=== PATIENT | female | born 1975 | race Caucasian/White ===

== ENCOUNTER 2023-04-25 10:18 | Outpatient (CLI) | payer MEDICAID, SELFPAY | END 2023-04-25 10:19 | disposition home or self-care (01) | PROVIDERS: PCP Family Medicine; Visit Provider Family Medicine | DX: Z00.00 Encounter for general adult medical examination without abnormal findings (principal); E78.5 Hyperlipidemia, unspecified; I10 Essential (primary) hypertension | CPT/HCPCS: 80048; 80061 ==

== ENCOUNTER 2024-01-29 14:14 | Outpatient (CLI) | payer MEDICAID, SELFPAY ==
--- OUTSIDE RECORDS SUMMARY | 2024-01-29 14:17 | XMS_ITS | Clinical Summary ---
Author Organization [facility] Address [address], [place] [address] Care Team Providers Care Circuit Board Drafter Name Role Phone Unavailable Primary Care Provider Unavailabl e Source Comments You are receiving this document as you are listed as the primary care provider,follow-up provider, or the patient has been referred to you for consultation.This is in compliance with the Medicare andMedicaid EHR Incentive Program,which states Providers who transition their patient to another setting of careor provider of care or refers their patient to another provider of care shouldprovide summary care record for each transition of care or referral. [facility] Allergies Active Allergy Reactions Criticality Noted Date Comments Erythromycin Nausea And Vomiting 11/17/2005 Medications Medication Sig Dispensed Refills Start Date End Date Status VENTOLIN HFA 108 (90 Base) MCG/ACT inhaler Inhale. 11/20/2022 Act goldie amLODIPine (NORVASC) 2.5 MG tablet Take 1 Tablet (2.5 mg) by mouth daily. 08/11/2022 Active amLODIPine (NORVASC) 10 MG tablet Take 1 Tablet (10 mg) by mouth daily. 11/20/2022 Active atorvastatin (LIPITOR) 20 MG tablet Take 1 Tablet (20 mg) by mouth daily. 11/23/2022 Active BELBUCA 150 MCG buccal film two times a day. 11/21/2022 Active diclofenac (VOLTAREN) 1 % gel SMARTSIG:Topical 11/21/2022 Active HYDROcodone-acetaminop hen (NORCO) 5-325 MG tablet Take by mouth. 12/02/2022 Active metoprolol succinate (TOPROL XL) 50 MG 24 hour release tablet Take 1 Tablet (50 mg) by mouth daily. 08/02/2022 Active pregabalin (LYRICA) 225 MG capsule Take 1 Capsule (225 mg) by mouth daily. 11/20/2022 Active tiZANidine (ZANAFLEX) 4 MG tablet Take 1 Tablet (4 mg) by mouth daily at bedtime. 11/21/2022 Active venlafaxine (EFFEXORXR) 75 MG 24 hour release capsule Take 1 Capsule (75 mg) by mouth daily. 10/03/2022 Active Social History Tobacco Use Types Packs/Day Years Used Date Smoking Tobacco: Never Assessed Sex and Gender Information Value Date Recorded Sex Assigned at Not on file Gender Identity Not on file Sexual Orientation Not on file Last Filed Vital Signs Vital Sign Reading Time Taken Comments Blood Pressure - - Pulse - - Temperature 36.6 ??C (97.8 ??F) 12/19/2022 2:32 PM CD T Respiratory Rate - - Oxygen Saturation - - Inhaled Oxygen Concentration - - Weight 95.3 kg (210 lb) 12/15/2022 3:33 PM CDT Height 162.6 cm (5' 4) 12/15/2022 3:33 PM CDT Body Mass Index 36.05 12/15/2022 3:33 PM CDT Plan of Treatment Health Maintenance Due Date Last Done Comments Cervical Cancer Screening Due 1974 Colon Cancer Screening Plan Due 1974 Hep C Screening (Preventive Services) 1974 HIV Screening (Preventive Services) 1990 Adult Preventive Visit 1992 HepB (1) 1993 Cholesterol 2019 DTaP/Tdap/Td (2 - Tdap) 01/03/2023 01/04/20 13, 11/22/1999 COVID-19 Vaccine ( - 2022-2 4 season) 2023 Zoster/Shingles (1 of 2) 2024 Influenza (Season Ended) 2024 HepA Aged Out No longer eligi ble based on patient's age to complete this topic Hib Aged Out No longer eligi ble based on patient's age to complete this topic IPV (Polio) Aged Out No longer eligi ble based on patient's age to complete this topic MCV4 Aged Out No longer eligi ble based on patient's age to complete this topic Pneumococcal Aged Out No longer eligi ble based on patient's age to complete this topic
--- OUTSIDE RECORDS SUMMARY | 2024-01-29 14:18 | XMS_ITS | Clinical Summary ---
Author Organization [facility] Address [address] [place] [address] Care Team Providers Care Occupational Hygienist Name Role Phone Ladarius Benjamin MD Primary Care Provider Allergies No known active allergies Medications Medication Sig Dispensed Refills Start Date End Date Status pregabalin (LYRICA) 50 MG capsule Take 50 mg by mouth 07/28/2016 Active guaiFENesin-codeine (ROBITUSSIN AC) 100-10 MG/5ML SOLN solutionIndications: Influenza A Take 5 mLs by mouth every 4 hours as needed for cough 120 mL 0 08/26/2016 Active oxyCODONE (ROXICODONE) 5 MG tablet Take 1-2 tablets (5-10 mg) by mouth every 6 hours as needed for moderate to severe pain 12 tablet 11/18/2020 Active Social History Tobacco Use Types Packs/Day Years Used Date Smoking Tobacco: Every Day Cigarettes Smokeless Tobacco: Never Alcohol Use Standard Drinks/Week Comments Not Asked 0 (1 standard drink = 0.6 oz pur e alcohol) Adolescent Education Answer Date Record ed Getting School Help Needed Not on file 05/13 Sex and Gender Information Value Date Recorded Sex Assigned at Not on file Gender Identity Not on file Sexual Orientation Not on file Last Filed Vital Signs Vital Sign Reading Time Taken Comments Blood Pressure 165/105 11/18/2020 8:45 PM CDT Pulse 67 11/18/2020 8:45 PM CDT Temperature 36.9 ??C (98.4 ??F) 11/18/2020 2:51 PM CD T Respiratory Rate 20 11/18/2020 8:45 PM CDT Oxygen Saturation 100% 11/18/2020 8:45 PM CDT Inhaled Oxygen Concentration - - Weight 92.5 kg (204 lb) 11/18/2020 2:51 PM CDT Height 165.1 cm (5' 5) 08/26/2016 8:39 AM 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
--- OUTSIDE RECORDS SUMMARY | 2024-01-29 14:18 | XMS_ITS | Referral Summary ---
Author Organization [facility] Address [address] [place] [id number] Care Team Providers Care Tariff Compiler Name Role Phone Ladarius Benjamin MD Primary Care Provider [phone] Allergies No known active allergies Medications Medication [...] 165.1 cm (5' 5) 08/26/2016 8:39 AM [employer] Body Mass Index 33.95 08/26/2016 8:39 AM [employer] Plan of Treatment Not on file Care Teams Tariff Compiler Relationship Specialty Start Date End Date Ladarius Benjamin MD PCP - General Family Medicine 11/18/20
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
--- OUTSIDE RECORDS SUMMARY | 2024-01-29 14:18 | XMS_ITS | Clinical Summary ---
Author Organization [facility] Address [address] [address] Phone Care Team Providers Care Kitchen Work Supervisor Name Role Phone Unavailable Primary Care Provider Unavailabl e Allergies No known active allergies Medications Medication Sig Dispensed Refills Start Date End Date Status acetaminophen (TYLENOL) 325 MG tablet Take 650 mg by mouth every six hours as needed for Pain. Limit acetaminophen to 4000 mg per day from all sources. Active AMITRIPTYLINE HCL OR Take by mouth. Active HYDROcodone-acetami nophen (NORCO) 5-325 MG oral tablet Take 1 Tab by mouth every six hours as needed for Pain for up to 10 doses. Acetaminophen should be limited to 4000 mg per day. 10 Tab 12/12/2017 Active Active Problems Problem Noted Date Diagnosed Date Adult acne 07/28/2016 Tobacco dependence 07/28/2016 Heart murmur 05/17/2010 Social History Tobacco Use Types Packs/Day Years Used Date Smoking Tobacco: Never Assessed Sex and Gender Information Value Date Recorded Sex Assigned at Not on file Gender Identity Not on file Sexual Orientation Not on file Last Filed Vital Signs Vital Sign Reading Time Taken Comments Blood Pressure 148/98 12/12/2017 2:17 PM CDT Pulse 60 12/12/2017 2:17 PM CDT Temperature 36.8 ??C (98.2 ??F) 12/12/2017 2:17 PM CD T Respiratory Rate 20 12/12/2017 2:17 PM CDT Oxygen Saturation 99% 12/12/2017 2:17 PM CDT Inhaled Oxygen Concentration - - Weight 81.6 kg (180 lb) 12/12/2017 2:17 PM CDT Height 165.1 cm (5' 5) 12/12/2017 2:17 PM CDT Body Mass Index 29.95 12/12/2017 2:17 PM CDT Plan of Treatment Not on file
== END 2024-01-29 14:15 | disposition home or self-care (01) ==
PROVIDERS: PCP Family Medicine; Visit Provider Family Medicine
DX: I10 Essential (primary) hypertension (principal); R53.83 Other fatigue; Z13.29 Encounter for screening for other suspected endocrine disorder
CPT/HCPCS: 80048; 84443

== ENCOUNTER 2024-10-22 09:01 | Outpatient (CLI) | payer MEDICAID, SELFPAY | END 2024-10-22 09:02 | disposition home or self-care (01) | PROVIDERS: PCP Family Medicine; Visit Provider Family Medicine | DX: I10 Essential (primary) hypertension (principal); E78.00 Pure hypercholesterolemia, unspecified; Z13.0 Encounter for screening for diseases of the blood and blood-forming organs and certain disorders involving the immune mechanism | CPT/HCPCS: 80048; 80061 ==

== ENCOUNTER 2025-02-10 10:05 | Outpatient (CLI) | payer MEDICAID, SELFPAY ==
--- NOTE | 2025-02-10 10:15 | CRLHL7_ITS ---
For Patients: As a result of the Century Cures Act, medical imaging exams and procedure reports are released immediately into your electronic medical record. You may view this report before your referring provider. If you have questions, please contact your health care provider. BILATERAL DIGITAL SCREENING MAMMOGRAM WITH COMPUTER-AIDED DETECTION AND TOMOSYNTHESIS CLINICAL HISTORY: Routine screening exam. COMPARISON: None TECHNIQUE: Digital mammogram in CC and MLO projections including computer-aided detection (CAD). Tomosynthesis was used in this interpretation. BREAST COMPOSITION: There are scattered areas of fibroglandular density. FINDINGS: RIGHT Breast: Right breast mass with architectural distortion is present at 12 o`clock 2.5 cm from the nipple. Mildly prominent right axillary lymph node may be present. LEFT Breast: No suspicious findings. IMPRESSION: RIGHT breast asymmetry/mass. RECOMMENDATIONS: Additional mammographic views of the RIGHT breast including 3D spot-compression CC/MLO. RIGHT breast ultrasound of the breast lesion and right axilla also recommended. The [facility] will contact the patient. A lay language report of this examination will be provided to the patient. BI-RADS Category 0: Incomplete: Need Additional Imaging Evaluation Dictated by Pa Alexander MD @ 02/10/2025 11:16:03 AM Dictated by: Pa Alexander MD @ 02/10/2025 11:16:33 (Electronically Signed)
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
--- OUTSIDE RECORDS SUMMARY | 2025-02-11 00:34 | XMS_ITS | Clinical Summary ---
Author Organization [facility] Address [address] [address] Phone Care Team Providers Care Bankruptcy Assistant Name Role Phone Unavailable Primary Care Provider Unavailabl e Allergies No known active allergies Medications acetaminophen (TYLENOL) 325 MG tablet Take 650 mg by mouth every six hours as needed for Pain. Limit acetaminophen to 4000 mg per day from all sources. Active AMITRIPTYLINE HCL OR Take by mouth. Activ e HYDROcodone-ac etaminophen (NORCO) 5-325 MG oral tablet Take 1 Tab by mouth every six hours as needed for Pain for up to 10 doses. Acetaminophen should be limited to 4000 mg per day. 10 Tab 8 Active Active Problems Problem Noted Date Diagnosed Date Adult acne 07/28/2016 Tobacco dependence 07/28/2016 Heart murmur 05/17/2010 Social History Tobacco Use Types Packs/Day Years Used Date Smoking Tobacco: Never Assessed Comments Unknown Sex and Gender Information Value Date Recorded Sex Assigned at Not on file Legal Sex Female 1:51 PM CDT Gender Identity Not on file Sexual Orientation Not on file Last Filed Vital Signs Vital Sign Reading Time Taken Comments Blood Pressure 148/98 12/12/2017 2:17 PM CDT Pulse 60 12/12/2017 2:17 PM CDT Temperature 36.8 C (98.2 F) 12/12/2017 2:17 PM CDT Respiratory Rate 20 12/12/2017 2:17 PM CDT Oxygen Saturation 99% 12/12/2017 2:17 PM CDT Inhaled Oxygen Concentration - - Weight 81.6 kg (180 lb) 12/12/2017 2:17 PM CDT Height 165.1 cm (5' 5) 12/12/2017 2:17 PM CDT Body Mass Index 29.95 12/12/2017 2:17 PM CDT Plan of Treatment Not on file
--- OUTSIDE RECORDS SUMMARY | 2025-02-11 00:34 | XMS_ITS | Clinical Summary ---
Author Organization [facility] Address [address] [place] [address] Care Team Providers Care Wharf Tender Helper Name Role Phone Ladarius Benjamin MD Primary Care Provider [phone] Allergies No known active allergies Medications pregabalin (LYRICA) 50 MG capsule Take 50 mg by mouth 07/28/2016 Active guaiFENesin-cod eine (ROBITUSSIN AC) 100-10 MG/5ML SOLN solutionIndicat ions:Influenza A Take 5 mLs by mouth every [...] School Help Needed Not on file 05/13 Comments Unknown Sex and Gender Information Value Date Recorded Sex Assigned at Not on file Legal Sex Female 3:25 AM TOOL TROUBLE SHOOTER Gender Identity Not on file Sexual Orientation Not on file Last Filed Vital Signs Vital Sign Reading Time Taken Comments Blood Pressure 165/105 11/18/2020 8:45 PM CDT Pulse 67 11/18/2020 8:45 PM CDT Temperature 36.9 C (98.4 F) 11/18/2020 2:51 PM CDT Respiratory Rate 20 11/18/2020 8:45 PM CDT Oxygen Saturation 100% 11/18/2020 8:45 PM CDT Inhaled Oxygen Concentration - - Weight 92.5 kg (204 lb) 11/18/2020 2:51 PM CDT Height 165.1 cm (5' 5) 08/26/2016 8:39 AM TOOL TROUBLE SHOOTER Body Mass Index 33.95 08/26/2016 8:39 AM TOOL TROUBLE SHOOTER Plan of Treatment Not on file Care Teams Wharf Tender Helper Relationship Specialty Start Date End Date Ladarius Benjamin MD PCP - General Family Medicine 11/18/20
--- OUTSIDE RECORDS SUMMARY | 2025-02-11 00:34 | XMS_ITS ---
Author Organization Unknown Patient Care team information Name Category Status Period Participants - - Proposed period not known -
--- OUTSIDE RECORDS SUMMARY | 2025-02-11 00:34 | XMS_ITS | Clinical Summary ---
Author Organization [email or web address] Address [address], [place] [address] Care Team Providers Care Chemical Tank Worker Name Role Phone Unavailable Primary Care Provider [...] for each transition of care or referral. [employer] [email or web address] Allergies Active Allergy Reactions Criticality Noted Date Comments Erythromycin Nausea And Vomiting 11/17/2005 Medications VENTOLIN HFA 108 (90 Base) MCG/ACT inhaler [...] 11/21/2022 Active diclofenac (VOLTAREN) 1 % gel SMARTSIG:Top ical 11/21/2022 Active HYDROcodone-mima taminophen (NORCO) 5-325 MG tablet Take by mouth. [...] at Not on file Legal Sex Female 5:50 PM CDT Gender Identity Not on file Sexual Orientation Not on file Last Filed Vital Signs Vital Sign Reading Time Taken Comments Blood Pressure - - Pulse - - Temperature 36.6 C (97.8 F) 12/19/2022 2:32 PM CDT Respiratory Rate - - Oxygen Saturation - [...] 1974 Hep C Screening (Preventive Services) 1974 Mammogram 1974 HIV Screening (Preventive Services) 1990 Adult Preventive Visit 1992 HepB Vaccine (1) 1993 Cholesterol 2019 DTaP/Tdap/Td Vaccine (2 - Tdap) 01/03/2023 01/03/2013, 11/22/1999 Pneumococcal Vaccine 50+ Yrs (1 of 1 - PCV) 2024 Zoster/Shingles Vaccine (1 o f 2) 2024 COVID-19 Vaccine (1 - 2023-2 5 season) 2024 Influenza Vaccine (Season Ended) 2025 HepA Vaccine Aged Out No longer eligi ble based on patient's age to complete this topic Hib Vaccine Aged Out No longer eligi ble based on patient's age to complete this topic IPV (Polio) Vaccine Aged Out No longe r eligible based on patient's age to complete this topic MCV4 Vaccine Aged Out No longer eligi ble based on patient's age to complete this topic Meningococcal B Vaccine Aged Out No l onger eligible based on patient's age to complete this topic Insurance [facility]
== END 2025-02-10 10:06 | disposition home or self-care (01) ==
LOC: MAMMO 10:05
PROVIDERS: PCP Family Medicine; Visit Provider Family Medicine
DX: Z12.31 Encounter for screening mammogram for malignant neoplasm of breast (principal); N63.10 Unspecified lump in the right breast, unspecified quadrant
CPT/HCPCS: 77063; 77067

== ENCOUNTER 2025-02-11 07:40 | Outpatient (CLI) | payer MEDICAID, SELFPAY ==
--- NOTE | 2025-02-11 07:45 | CRLHL7_ITS ---
For Patients: As a result of the Cures Act, medical imaging exams and procedure reports are released immediately into your electronic medical record. You may view this report before your referring provider. If you have questions, please contact your health care provider. DIGITAL DIAGNOSTIC RIGHT BREAST MAMMOGRAM WITH TOMOSYNTHESIS, 02/11/2025 RIGHT BREAST ULTRASOUND, 02/11/2025 CLINICAL HISTORY: RIGHT breast mass/asymmetry. COMPARISON: 02/10/2025. TECHNIQUE: Digital RIGHT mammogram in 2 projections. Tomosynthesis was used in this interpretation. Real-time ultrasound imaging of RIGHT breast with imaging documentation. BREAST COMPOSITION: There are scattered areas of fibroglandular density. FINDINGS: 3D spot compression CC/MLO RIGHT breast mammogram images submitted. Spiculated mass with architectural distortion is present at 12 o`clock 2.5 cm from the nipple. No associated calcifications. Targeted RIGHT breast ultrasound performed. At 12 o`clock 2.5 cm from the nipple, there is a hypoechoic spiculated mass which measures approximately 8 millimeters. However, the total measurement is likely larger. IMPRESSION: Suspicious mass RIGHT breast 12 o`clock 2.5 cm from the nipple measuring at least 8 millimeters and likely measuring more than this. RECOMMENDATIONS: Ultrasound-guided core needle biopsy will be performed subsequently. A lay language report of this examination will be provided to the patient. BI-RADS Category 5. Highly suggestive for malignancy. Dictated by Pa Alexander MD @ 02/11/2025 9:51:03 AM TOMAS/taryn DW/Dictated by: Pa Alexander MD @ 02/11/2025 9:51:00 AM (Electronically Signed)
--- NOTE | 2025-02-11 08:15 | CRLHL7_ITS ---
For Patients: As a result of the Century Cures Act, medical imaging exams and procedure reports are released immediately into your electronic medical record. You may view this report before your referring provider. If you have questions, please contact your health care provider. Please see RIGHT breast diagnostic mammogram for combined report. DSM:taryn 02/11/2025 DW/Dictated by: Pa Alexander MD @ 02/11/2025 10:02:00 AM (Electronically Signed)
--- NOTE | 2025-02-11 08:15 | CRLHL7_ITS ---
For Patients: As a result of the Century Cures Act, medical imaging exams and procedure reports are released immediately into your electronic medical record. You may view this report before your referring provider. If you have questions, please contact your health care provider. Indication: Prominent right axillary lymph node in the setting of a suspicious right breast mass Technique: Grayscale and color Doppler ultrasound of the right axilla performed. Comparison: Mammogram 02/10/2025 Findings: Mildly prominent right axillary lymph node is present which measures 11 x 7 x 15 millimeters. Focal cortical thickening noted measuring 4.1 millimeters. Normal-appearing right axillary lymph node also present measuring 20 x 11 x 13 millimeters. No abnormal vascularity. Impression: Mildly prominent right axillary lymph node with focal cortical thickening. Ultrasound-guided biopsy will be performed subsequently. Dictated by Pa Alexander MD @ 02/11/2025 10:04:10 AM (Electronically Signed)
--- NOTE | 2025-02-11 09:15 | CRLHL7_ITS ---
For Patients: As a result of the Century Cures Act, medical imaging exams and procedure reports are released immediately into your electronic medical record. You may view this report before your referring provider. If you have questions, please contact your health care provider. ULTRASOUND-GUIDED BREAST BIOPSY AND POST-BIOPSY DIGITAL MAMMOGRAM FOR BIOPSY MARKER PLACEMENT CLINICAL HISTORY: Indeterminate mass. COMPARISON STUDIES: 02/10/2025. TECHNIQUE: Real-time ultrasound with image documentation was used for targeting the breast lesion. Core biopsy specimens were obtained using an automated gun with a 16-gauge biopsy needle. Post-biopsy CC and ML digital mammograms were obtained to document position of the biopsy marker. CONSENT and TIME OUT: The procedure, risks, and alternatives were explained to the patient and a consent was signed. [place] Protocol was followed including pre-procedure verification that relevant information/documentation was available, reviewed and properly matched to the patient; consent accurate and complete; and equipment and supplies available. Time Out was conducted just prior to starting procedure to verify the four required elements: patient identity, correct side/site marked (if applicable), procedure, relevant images/results properly labeled and displayed (if applicable). PROCEDURE: The patient was positioned supine on the ultrasound table. The breast was prepped with ChloraPrep. 8 cc of 1 percent lidocaine used for local anesthesia. Core samples were obtained. A sterile metal biopsy clip was placed percutaneously to claudine the lesion position within the breast. The specimens were placed in 10% formalin and sent to the pathology department. Pressure was held on the biopsy site until all bleeding subsided. The skin incision was closed with Steri-Strips. An ice pack was positioned over the biopsy site. Post-biopsy instructions were reviewed with the patient, and a written copy was given to her. LATERALITY: RIGHT breast. LESION: Solid spiculated hypoechoic shadowing mass with architectural distortion measuring approximately 8 millimeters but possibly more at 12 o`clock 2.5 cm from the nipple. SUSPICION FOR MALIGNANCY: High. NUMBER OF SAMPLES: 5. BIOPSY CLIP SHAPE: HydroMARK. PROXIMITY OF CLIP TO TARGET: Immediately adjacent to/within the lesion. IMPRESSION: Ultrasound-guided breast biopsy. When the pathology report is available, an addendum to this report will be made. ACR not applicable Dictated by Pa Alexander MD @ 02/11/2025 10:17:44 AM jj/Dictated by: Pa Alexander MD @ 02/11/2025 10:17:00 AM (Electronically Signed)
--- NOTE | 2025-02-11 09:15 | CRLHL7_ITS ---
For Patients: As a result of the Century Cures Act, medical imaging exams and procedure reports are released immediately into your electronic medical record. You may view this report before your referring provider. If you have questions, please contact your health care provider. ULTRASOUND-GUIDED RIGHT AXILLARY LYMPH NODE BIOPSY CLINICAL HISTORY: Suspicious right axillary lymph node in the setting of a suspicious right breast mass COMPARISON STUDIES: 02/10/2025 TECHNIQUE: Real-time ultrasound with image documentation was used for targeting the right axillary lesion. Core biopsy specimens were obtained using an automated gun with an 18-gauge biopsy needle. CONSENT and TIME OUT: The procedure, risks, and alternatives were explained to the patient and a consent was signed. [place] Protocol was followed including pre-procedure verification that relevant information/documentation was available, reviewed and properly matched to the patient; consent accurate and complete; and equipment and supplies available. Time Out was conducted just prior to starting procedure to verify the four required elements: patient identity, correct side/site marked (if applicable), procedure, relevant images/results properly labeled and displayed (if applicable). PROCEDURE: The patient was positioned supine on the ultrasound table. The right axilla was prepped with ChloraPrep. 8 cc of 1 percent lidocaine used for local anesthesia. Core samples were obtained. A sterile metal biopsy clip was placed percutaneously to claudine the lesion position within the right axilla. The specimens were placed in 10% formalin and sent to the pathology department. Pressure was held on the biopsy site until all bleeding subsided. The skin incision was closed with Steri-Strips. An ice pack was positioned over the biopsy site. Post-biopsy instructions were reviewed with the patient, and a written copy was given to her. LATERALITY: Right axilla LESION: Mildly prominent right axillary lymph node measuring 1.1 x 0.7 x 1.5 cm with thickened cortex measures 4.1 millimeters SUSPICION FOR MALIGNANCY: High NUMBER OF SAMPLES: 5 BIOPSY CLIP SHAPE: Oval PROXIMITY OF CLIP TO TARGET: Within the lesion IMPRESSION: Ultrasound-guided right axillary lymph node biopsy. When the pathology report is available, an addendum to this report will be made. ACR not applicable Dictated by Pa Alexander MD @ 02/11/2025 10:14:43 AM (Electronically Signed)
--- NOTE | 2025-02-11 09:45 | CRLHL7_ITS ---
For Patients: As a result of the Century Cures Act, medical imaging exams and procedure reports are released immediately into your electronic medical record. You may view this report before your referring provider. If you have questions, please contact your health care provider. SEE ULTRASOUND-GUIDED RIGHT BREAST BIOPSY PERFORMED SAME DAY CRL:[email or web address] linda/Dictated by: Pa Alexander MD @ 02/11/2025 10:04:00 AM (Electronically Signed)
== END 2025-02-11 07:41 | disposition home or self-care (01) ==
LOC: MAMMO 07:40
PROVIDERS: PCP Family Medicine; Visit Provider Family Medicine
DX: N63.10 Unspecified lump in the right breast, unspecified quadrant (principal); C50.912 Malignant neoplasm of unspecified site of left female breast; R92.8 Other abnormal and inconclusive findings on diagnostic imaging of breast; R59.0 Localized enlarged lymph nodes
CPT/HCPCS: 19083; 38505; 76642; 76882; 76942; 77065; A4648; A4649; G0279

== ENCOUNTER 2025-05-13 10:53 | Outpatient (CLI) | payer MEDICAID, SELFPAY | END 2025-05-13 10:54 | disposition home or self-care (01) | PROVIDERS: PCP Family Medicine; Visit Provider Family Medicine | DX: E78.00 Pure hypercholesterolemia, unspecified (principal); R53.83 Other fatigue | CPT/HCPCS: 80061; 84443 ==

== ENCOUNTER 2025-05-14 06:50 | Day surgery (SDC) | payer MEDICAID, SELFPAY ==
[2025-05-14 07:22] VITALS: BMI 34.0
[2025-05-14 07:24] VITALS: BP 148/93; PULSE 62; RESP 20; TEMP 36.9; O2SAT 97
[2025-05-14] MEDS: LACTATED RINGERS 1000 ML 1,000 ML 100 ML IV (07:35)
[2025-05-14] MEDS: SODIUM CHLORIDE 0.9 % (FLUSH) 10 ML SYRINGE IVF (07:35)
--- NOTE | 2025-05-14 08:15 | CRLHL7_ITS ---
For Patients: As a result of the Cures Act, medical imaging exams and procedure reports are released immediately into your electronic medical record. You may view this report before your referring provider. If you have questions, please contact your health care provider. BREAST WIRE LOCALIZATION USING ULTRASOUND GUIDANCE CLINICAL HISTORY: RIGHT breast cancer. LATERALITY: RIGHT breast. LESION: Solid spiculated mass at mid depth 12 o`clock 3 cm from the nipple. LOCALIZATION WIRE: [place] hookwire. TECHNIQUE: The localization wire was placed using real-time ultrasound guidance with image documentation. Cranial-caudal and medial-lateral digital mammograms were obtained after localization wire placement. CONSENT and TIME OUT: The procedure, risks, and alternatives were explained to the patient and a consent was signed. [place] Protocol was followed including pre-procedure verification that relevant information/documentation was available, reviewed and properly matched to the patient; consent accurate and complete; and equipment and supplies available. Time Out was conducted just prior to starting procedure to verify the four required elements: patient identity, correct side/site marked (if applicable), procedure, relevant images/results properly labeled and displayed (if applicable). PROCEDURE: The skin was prepped with ChloraPrep and 3 cc of 1% lidocaine was injected for local anesthesia. The localization wire was placed within or near the targeted breast lesion using ultrasound guidance. The patient tolerated the procedure well. PROXIMITY OF WIRE TO LESION: The wire is located within the lesion adjacent to the HydroMARK clip. IMPRESSION: Successful breast wire localization. ACR not applicable Dictated by Pa Alexander MD @ 05/14/2025 9:30:18 AM jj/Dictated by: Pa Alexander MD @ 05/14/2025 9:30:00 AM (Electronically Signed)
--- NOTE | 2025-05-14 09:00 | CRLHL7_ITS ---
For Patients: As a result of the Cures Act, medical imaging exams and procedure reports are released immediately into your electronic medical record. You may view this report before your referring provider. If you have questions, please contact your health care provider. SEE ULTRASOUND-GUIDED WIRE LOCALIZATION PERFORMED SAME DAY CRL:[email or web address] linda/Dictated by: Pa Alexander MD @ 05/14/2025 9:23:00 AM (Electronically Signed)
[2025-05-14] MEDS: LIDOCAINE 1% MDV 3.5 ML INJECTION (09:41)
[2025-05-14] MEDS: BUPIVACAINE 0.25% 30 ML 3.5 ML INJECTION (09:41)
--- NOTE | 2025-05-14 09:56 | CRLHL7_ITS ---
For Patients: As a result of the Cures Act, medical imaging exams and procedure reports are released immediately into your electronic medical record. You may view this report before your referring provider. If you have questions, please contact your health care provider. RIGHT BREAST SPECIMEN RADIOGRAPH CLINICAL HISTORY: RIGHT breast cancer, lumpectomy. COMPARISON: 05/14/2025. FINDINGS: Two views of the RIGHT specimen submitted. Specimen contains the biopsied mass along with the localization wire. HydroMARK clip is not present. IMPRESSION: Specimen contains the localization wire and biopsied mass. HydroMARK clip is not present. Results were immediately verbally reported to the operating room staff by the radiology department staff. ACR not applicable Dictated by Pa Alexander MD @ 05/14/2025 10:50:02 AM jj/Dictated by: Pa Alexander MD @ 05/14/2025 10:50:00 AM (Electronically Signed)
--- NOTE | 2025-05-14 09:56 | CRLHL7_ITS ---
For Patients: As a result of the Cures Act, medical imaging exams and procedure reports are released immediately into your electronic medical record. You may view this report before your referring provider. If you have questions, please contact your health care provider. RIGHT BREAST SPECIMEN RADIOGRAPH CLINICAL HISTORY: RIGHT breast cancer, lumpectomy. COMPARISON: 05/14/2025. FINDINGS: Two-views of additional RIGHT breast tissue submitted. HydroMARK clip is not present. IMPRESSION: Specimen does not contain the HydroMARK clip. Results were immediately verbally reported to the operating room staff by the radiology department staff. ACR not applicable Dictated by Pa Alexander MD @ 05/14/2025 10:51:27 AM jj/Dictated by: Pa Alexander MD @ 05/14/2025 10:51:00 AM (Electronically Signed)
--- NOTE | 2025-05-14 10:35 | CRLHL7_ITS ---
For Patients: As a result of the Cures Act, medical imaging exams and procedure reports are released immediately into your electronic medical record. You may view this report before your referring provider. If you have questions, please contact your health care provider. RIGHT BREAST SPECIMEN RADIOGRAPH CLINICAL HISTORY: RIGHT breast cancer, lumpectomy. COMPARISON: 05/14/2025. FINDINGS: Two-views of additional RIGHT breast tissue submitted. Specimen does not contain HydroMARK clip. IMPRESSION: HydroMARK clip is not present. Results were immediately verbally reported to the operating room staff by the radiology department staff. ACR not applicable Dictated by Pa Alexander MD @ 05/14/2025 10:52:33 AM jj/Dictated by: Pa Alexander MD @ 05/14/2025 10:52:00 AM (Electronically Signed)
--- NOTE | 2025-05-14 10:36 | P.ANES_ITS ---
Anesthesia Charges Start Date/Time Anesthesia Start Date: 05/14/25 Anesthesia Start Time: 09:19 Stop Date/Time Anesthesia Stop Date: 05/14/25 Anesthesia Stop Time: 11:07 Coding CPT Codes CPT Codes: ANESTH SKIN EXT/PER/ATRUNK - 33783 ([id number]) P2 - PATIENT W/MILD SYST DISEASE, QK - CELL BIOLOGY SCIENTIST 2-4 CNCRNT ANES PROC, QX - IT NETWORK ARCHITECT SVC W/ MD MED DIRECTION
--- NOTE | 2025-05-14 10:36 | W.ANESCHARGE ---
Anesthesia Charges Start Date/Time Anesthesia Start Date: 05/14/25 Anesthesia Start Time: 09:19 Stop Date/Time Anesthesia Stop Date: 05/14/25 Anesthesia Stop Time: 11:07 Coding CPT Codes CPT Codes: ANESTH SKIN EXT/PER/ATRUNK - 31772 ([id number]) P2 - PATIENT W/MILD SYST DISEASE, QK - ESCORT SERVICE ATTENDANT 2-4 CNCRNT ANES PROC, QX - UNION LABORER SVC W/ MD MED DIRECTION
--- NOTE | 2025-05-14 10:45 | CRLHL7_ITS ---
For Patients: As a result of the Cures Act, medical imaging exams and procedure reports are released immediately into your electronic medical record. You may view this report before your referring provider. If you have questions, please contact your health care provider. RIGHT BREAST SPECIMEN RADIOGRAPH CLINICAL HISTORY: RIGHT breast cancer. COMPARISON: 05/14/2025. FINDINGS: Two-views of additional RIGHT breast tissue submitted. No clip is present. IMPRESSION: No HydroMARK clip. Results were immediately verbally reported to the operating room staff by the radiology department staff. ACR not applicable Dictated by Pa Alexander MD @ 05/14/2025 11:09:47 AM jj/Dictated by: Pa Alexander MD @ 05/14/2025 11:09:00 AM (Electronically Signed)
--- NOTE | 2025-05-14 11:00 | SUR.OPER ---
PATIENT QUESTIONS ANSWERED SATISFACTORILY PREOPERATIVELY. PATIENT BROUGHT TO OR #4 PER CART. Patient positioned supine on OR #4 bed. The perioperative team supported arms bilaterally on arm boards. Final approval of positioning by surgeon.
--- NOTE | 2025-05-14 11:05 | P.ANES_ITS ---
Anesthesia Charges Start Date/Time Anesthesia Start Date: 05/14/25 Anesthesia Start Time: 09:19 Stop Date/Time Anesthesia Stop Date: 05/14/25 Anesthesia Stop Time: 11:07 Coding CPT Codes CPT Codes: ANESTH SKIN EXT/PER/ATRUNK - 88789 ([id number]) P2 - PATIENT W/MILD SYST DISEASE, QK - ASTRONAUTICAL ENGINEER 2-4 CNCRNT ANES PROC, QX - TOBACCO WETTER SVC W/ MD MED DIRECTION
--- NOTE | 2025-05-14 11:05 | W.ANESCHARGE ---
Anesthesia Charges Start Date/Time Anesthesia Start Date: 05/14/25 Anesthesia Start Time: 09:19 Stop Date/Time Anesthesia Stop Date: 05/14/25 Anesthesia Stop Time: 11:07 Coding CPT Codes CPT Codes: ANESTH SKIN EXT/PER/ATRUNK - 57912 ([id number]) P2 - PATIENT W/MILD SYST DISEASE, QK - PATIENT ASSISTANT 2-4 CNCRNT ANES PROC, QX - DELIVERY TRUCK DRIVER HEAVY SVC W/ MD MED DIRECTION
--- NOTE | 2025-05-14 11:08 | PM.GSPRC ---
Operative Note Date of procedure: 05/14/25 Pre-op diagnosis: Radial scar Post-op diagnosis: Same Type of Procedure: Right breast lumpectomy Indications: Patient is a 50-year-old female who presented to my clinic with findings of an abnormal mammogram and biopsy demonstrating course of radial scar. Imaging was reviewed with the radiologist, who felt like the biopsy findings were discussed quit in and with the imaging. Recommendations were for surgical excision of the lesion. Risks and benefits of operative intervention were discussed at length with the patient. Risks included but was not limited to: Bleeding, infection, risk of damage to surrounding structures, possible need for additional procedures and postoperative complications such as pneumonia, pulmonary emboli or IA. All questions and concerns were addressed with the patient agreeing to proceed. Procedure Description: After discussing the risks and benefits of the procedure, the patient signed informed consent.? The operative site was marked and the patient was brought to the operating room and placed on the operating table in supine position.? Care was taken to pad the patient's pressure points.?? The patient was then given sedation by anesthesia.?? The operative site was then prepped and draped in the usual sterile fashion.? A time-out was then performed. Local anesthesia was infiltrated into a curvilinear incision in the 10-12 o'clock position periareolar, adjacent to the location of the tip of the wire. Using electrocautery flaps were created circumferentially. The wire was brought into the operative field, keep taking care not to displace it. Following the wire down, the segment of breast tissue containing the tip of the wire was excised. This was sent for evaluation. Radiology was reviewed, with evidence of the wire but no clip present. An additional anterior margin was obtained with cautery. This was painted and sent to Radiology, again no clip was identified. Using cautery a posterior margin was removed, painted and sent to Radiology with no evidence of clip. A lateral margin was removed, painted and sent to Radiology with no evidence of clip. All specimens were reviewed with the radiologist. Tissue removed does correlate with the previous biopsied lesion. Clip likely was suctioned during specimen manipulation verses remaining in the breast tissue. I then made the decision to not remove any additional tissue. The wound was irrigated and all irrigant suctioned from the wound. Additional local anesthesia was infiltrated. The wound was then closed in layers using absorbable suture, and Dermbond was placed over the wound. The patient was awakened without incident and taken to PACU in stable condition. Sponge, needle and instrument counts were correct x3 at the termination of the case. Findings: Wire localized breast tissue. No clip identified within specimen. Additional anterior, posterior and lateral margins were obtained. Anesthesia: MAC and local Surgeon: uJd Marques MD Estimated blood loss (mL): 15 Additional Specimen Information: 1. Right breast mass 2. Anterior margin 3. Posterior margin 4. Lateral margin Condition: stable Disposition: same day
[2025-05-14 11:13] VITALS: BP 126/85; PULSE 61; RESP 16; TEMP 36.7; O2SAT 100
[2025-05-14 11:15] VITALS: BP 146/98; PULSE 60; RESP 16; O2SAT 92
[2025-05-14 11:30] VITALS: BP 147/97; PULSE 67; RESP 16; O2SAT 95
[2025-05-14] MEDS: ACETAMINOPHEN 325 MG TABLET 650 MG PO (11:38)
[2025-05-14] MEDS: HYDROCODONE-ACETAMIN 5-325 MG 1 TAB PO (11:38)
[2025-05-14 11:45] VITALS: BP 155/98; PULSE 64; RESP 16; O2SAT 95
--- NOTE | 2025-05-14 11:57 | SUR.PHASEII ---
Call light on to use restroom. Patient up at bedside and dressed. Ambulatory with stand by assist to restroom. Patient voided. Returned to bed. Family at the bedside.
[2025-05-14 12:07] VITALS: BP 143/87; PULSE 65; RESP 16; O2SAT 95
== END 2025-05-14 12:28 | disposition home or self-care (01) ==
LOC: OR 06:50
PROVIDERS: PCP Family Medicine; Visit Provider Surgery
PROC: (CPT 19125; principal; 2025-05-14 09:00)
DX: N63.15 Unspecified lump in the right breast, overlapping quadrants (principal); L90.5 Scar conditions and fibrosis of skin
CPT/HCPCS: 19125; 00400; 19285; 76942; 77065; 88307; 88341; 88342; J2003; A9270; C1769; J0665; J0690; J1100; J1885; J2405; J2704; J3010; J3490; J7120